=== PATIENT | male | born 1950 | race Native Hawaiian/Other Pacific Islander ===

== ENCOUNTER 2020-07-12 08:32 | Outpatient (CLI) | payer OTHER | END 2020-07-12 21:38 | disposition home or self-care (01) | LOC: INF 08:32 | PROVIDERS: ATTEND Internal Medicine | DX: Z23 Encounter for immunization (principal) | CPT/HCPCS: 96372 ==

== ENCOUNTER 2020-08-09 07:53 | Outpatient (CLI) | payer OTHER | END 2020-08-09 21:03 | disposition home or self-care (01) | LOC: INF 07:53 | PROVIDERS: ATTEND Internal Medicine | DX: Z23 Encounter for immunization (principal) | CPT/HCPCS: 96372 ==